=== PATIENT | male | born 1955 | race Caucasian/White ===

== ENCOUNTER 2016-12-31 21:26 | Emergency (ER) | payer BC ==
[2016-12-31 21:33] VITALS: BMI 27.7
--- NOTE | 2016-12-31 21:38 | ED PDOC ---
Arrival/HPI - General Time Seen by Provider: 12/31/16 21:33 Historian: Patient - Critical Care Critical Care Minutes: 45 minutes - History of Present Illness Narrative History of Present Illness (Text): 12/31/16 21:33 Melania Castillo is a 61 year old male, whose past medical history includes hypertension, gout, and scoliosis, who presents to the emergency department complaining of stroke symptoms that began about 30 minutes prior to arrival as per family. No prior history of CVA and anticoagulants. he presents with acute left sided hemiparesis starting at 9:00pm. a stroke alert was called upon arrival. 01/01/17 05:08 Time/Duration: 1/2 hour Symptom Onset: Gradual Activities at Onset: Light Context: Home Past Medical History - Provider Review Nursing Documentation Reviewed: Yes Family/Social History - Physician Review Nursing Documentation Reviewed: Yes Family/Social History: No Known Family HX Hx Alcohol Use: No Allergies/Home Meds Allergies/Adverse Reactions: Allergies shrimp Allergy (Verified 12/31/16 21:30) RASH Home Medications: Home Meds Medication Instructions Recorded Confirmed Atenolol [Tenormin] 50 mg PO DAILY 12/31/16 12/31/16 Lisinopril [Zestril] 20 mg PO DAILY 12/31/16 12/31/16 Naproxen 500 mg PO BID 12/31/16 12/31/16 Valsartan [Diovan] 80 mg PO DAILY 12/31/16 12/31/16 Review of Systems - Physician Review All systems were reviewed & negative as marked: Yes - Review of Systems Systems not reviewed;Unavailable: Acuity of Condition Physical Exam Vital Signs Pulse Resp BP Pulse Ox 12/31/16 22:55 108 H 164/113 H 98 12/31/16 22:50 106 H 166/107 H 97 12/31/16 22:35 101 H 201/123 H 100 12/31/16 22:25 119 H 18 218/146 H 97 12/31/16 22:07 87 174/108 H 12/31/16 21:50 16 174/108 H 100 - Systems Exam Upper Extremity: No: Normal Inspection, Normal ROM (Motor: 4 - LUE) Lower Extremity: No: Normal Inspection, Normal ROM (Motor: 3 - LLE) Neurological: No: GCS=15, CN II-XII Intact, Speech Normal Medical Decision Making ED Course and Treatment: 12/31/16 21:37 Impression: 61 year old male complaining of stroke symptoms that began about 30 minutes prior to arrival. Differential Diagnosis included but are not limited to: CVA vs. TIA Plan: -- Chest X-ray -- Angiography Head CT -- Head CT w/o contrast -- Type and Screen -- Labs -- Reassess and disposition Progress Notes: 12/31/2016 21:[address] Aldridge in detail, who is aware and agrees with patient plan. 12/31/16 22:[address] Ngo, who states that there is nothing to do from a neurosurgical standpoint. Call neurologist. Case discussed with Dr. Aldridge, BP control 120-130 systolic. Head of bed 30 degrees. Family would like to transfer to [facility] for more aggressive surgical care. 12/31/16 22:10 CT Head Without Intravenous Contrast: Creator : JONATHAN JAMES FINDINGS: Brain: Acute intracranial hemorrhage is detected within the right thalamus, extending into the central part of the lateral ventricles. Sherly-hemorrhagic edema is noted. The focus of edema measures 21.7 x 23.1 mm (anterior to posterior by medial to lateral dimension). No significant white matter disease. Ventricles: No significant ventriculomegaly. Bones: No acute displaced fracture. Sinuses: Unremarkable as visualized. No acute sinusitis. Mastoid air cells: Unremarkable as visualized. No mastoid effusion. IMPRESSION: Acute intracranial hemorrhage within the right thalamus, with sherly-hemorrhagic edema, as detailed above. pt was acceptded by dr. Lyn of Neurosurgery at [facility] as per family request. 12/31/16 22:55 On repeat neuro exam, patient is more obtunded. GCS is 4 with right pupil 4 and left pupil 3. Patient was intubated due to decompensation. Patient was also RSI intubated. Given Mannitol 20 g, Lidocaine 100 for RSI intubation, Etomidate 20 mg, Succinylcholine 20 mg, Keppra for seizures, and nicardipine for BP control. Patient's head of bed elevated to 30 degrees and patient sedated with Propofol. despite mannitol, hyperventilation, patient is showing signs of decerebrate posture. multiple attempts were made to titrate nicardipine and propofol to control BP however this was very difficult to control 12/31/16 23:06 Patient will be transferred to [facility] by ALS as per family's request. Intubation placement confirmed with chest x-ray consultation. 01/01/17 04:59 01/01/17 05:10 - Critical Care Critical Care Minutes: 60 minutes - Lab Interpretations Lab Results: 12/31/16 21:50 12/31/16 21:50 Lab Results 12/31/16 21:50: Blood Type O POSITIVE, Antibody Screen Negative, BBK History Checked No verified bt 12/31/16 21:50: Sodium 143, Potassium 4.0, Chloride 102, Carbon Dioxide 30, Anion Gap 15, BUN 24 H, Creatinine 1.3, Est GFR ( Amer) > 60, Est GFR ( Non-Af Amer) 56, Random Glucose 145 H, Calcium 9.1, Total Bilirubin 0.5, AST 29 , ALT 37, Alkaline Phosphatase 62, Troponin I < 0.01, Total Protein 7.0, Albumin 4.1, Globulin 2.8, Albumin/Globulin Ratio 1.5, Triglycerides 420 H, Cholesterol 157, LDL Cholesterol Direct 75, HDL Cholesterol 40 12/31/16 21:50: PT 12.0 H, INR 1.11 H, APTT 29.1 12/31/16 21:50: WBC 7.7, RBC 5.01, Hgb 15.7, Hct 45.6, MCV 91.0, MCH 31.3, MCHC 34.4, RDW 12.6, Plt Count 223, MPV 9.8, Gran % 55.4, Lymph % (Auto) 35.1 H, [place] % (Auto) 7.2 H, Eos % (Auto) 1.9, Baso % (Auto) 0.4, Gran # 4.28, Lymph # 2.7, [place] # 0.6, Eos # 0.2, Baso # 0.03 I have reviewed the lab results: Yes - RAD Interpretation Radiology Orders: 12/31/16 21:39 HEAD W/O (CODE STROKE) [CT] Stat CHEST PORTABLE [RAD] Stat 12/31/16 22:55 X-RAY [CHEST PORTABLE] [RAD] Stat - EKG Interpretation EKG Interpretation (Text): 01/01/17 07:20 3-year-old normal sinus rhythm with inferior Q wave no ST depression or elevation Interpreted by ED Physician: Yes Type: 12 lead EKG - Medication Orders Current Medication Orders: Discontinued Medications Nicardipine HCl (Cardene Iv Premix) 20 mg in 200 mls @ 50 mls/hr IV .Q4H PRN; Protocol; 5 MG/HR PRN Reason: TITRATE PER MD ORDER Last Admin: 12/31/16 22:07 Dose: 50 mls/hr eMAR Start Stop Document 12/31/16 22:07 EKEOO (Rec: 12/31/16 22:07 [email or web address] [id number]) Intravenous Solution Start Date 12/31/16 Start Time 22:07 [facility] Pulse and Blood Pressure Document 12/31/16 22:07 EKEOO (Rec: 12/31/16 22:07 [email or web address] [id number]) Pulse Pulse Rate (60-90 beats/min) 87 Blood Pressure Blood Pressure (100/60-150/90 mm Hg) 174/108 Levetiracetam 1,000 mg/ Sodium (Chloride) 110 mls @ 440 mls/hr IV ONCE ONE Stop: 12/31/16 22:39 Last Admin: 12/31/16 22:30 Dose: 440 mls/hr eMAR Start Stop Document 12/31/16 22:30 EKEOO (Rec: 01/01/17 04:56 [email or web address] [id number]) Intravenous Solution Start Date 12/31/16 Start Time 22:30 Mannitol (Mannitol) 20 gm IV ONCE ONE Stop: 12/31/16 22:28 Last Admin: 12/31/16 22:30 Dose: 20 gm eMAR Start Stop Document 12/31/16 22:30 EKEOO (Rec: 01/01/17 04:54 EKEOO [id number]) Intravenous Solution Start Date 12/31/16 Start Time 22:30 - Procedure PROCEDURE NOTE (Text): PROCEDURE: INTUBATION Performed by the emergency provider Time: Consent: Discussion of the risks, benefits, and alternatives to the procedure, along with informed consent was precluded by the urgency of the procedure and the patient condition. Timeout: A timeout to verify the correct patient, procedure, and site was performed. Indication: Pre-oxygenation: [id number] Medications: . See MAR for details. ETT Size: Confirmation: Cords directly visualized as tube passed, good bilateral breath sounds, positive CO2 detector color change, tube fogging, adequate chest rise, improving pulse oximetry reading, improved skin color, and absence of gastric sounds,. ETT Secured: The cuff was inflated and the tube was secured appropriately at a distance of cm at the lip. Post-Procedure: There were no immediate complications. CXR Confirmation: {Yes / No} NIHSS Scale ([place]) Time Performed: 09:30 - How Severe is the Stoke Baseline Level of Consciousness: 0=Alert LOC to Questions: 0=Both comments correct LOC to commands: 0=Obeys both correctly Best Gaze: 2=Forced deviation Visual: 2=Complete hemianopia Facial: 3=Complete unilateral paralysis Motor Arm - Left: 3=No effort against gravity (falls immediately) Motor Arm - Right: 0=No drift Motor Leg - Left: 3=No effort against gravity (falls immediately) Motor Leg - Right: 0=No drift Limb Ataxia: 0=Absent Sensory: 0=Normal Best Language: 0=No aphasia Dysarthia: 1=Mild to moderate slurring Extinction & Inattention (Neglect): 0=Normal, no object Score: 14 Risk Level: Mod Stroke Risk rTPA Inclusion/Exclusion - Refusal of Treatment Patient Refused Treatment: Yes - Inclusion Criteria for Altepase Patient is 18 years or Older: Yes - Scribe Statement The provider has reviewed the documentation as recorded by the Scribe Bia Butt Provider Scribe Attestation: All medical record entries made by the Scribe were at my direction and personally dictated by me. I have reviewed the chart and agree that the record accurately reflects my personal performance of the history, physical exam, medical decision making, and the department course for this patient. I have also personally directed, reviewed, and agree with the discharge instructions and disposition. Disposition/Present on Arrival - Present on Arrival Any Indicators Present on Arrival: No History of DVT/PE: No History of Uncontrolled Diabetes: No Urinary Catheter: No History of Decub. Ulcer: No - Disposition Have Diagnosis and Disposition been Completed?: Yes Diagnosis: Intracranial hemorrhage Disposition: Transfer Overlook Disposition Time: 07:10 Patient Plan: Admission Condition: CRITICAL Referrals: Chalo Gale MD [Primary Care Provider] - Follow up with primary Forms: [employer] (Ecuadorean)
--- NOTE | 2016-12-31 21:58 | CT ---
EXAM: CT Head Without Intravenous Contrast CLINICAL HISTORY: 61 years old, male; Signs and symptoms; Other: Weakness; Additional info: Code stroke TECHNIQUE: Axial computed tomography images of the head/brain without intravenous contrast. All CT scans at this facility use one or more dose reduction techniques, viz.: automated exposure control; ma/kV adjustment per patient size (including targeted exams where dose is matched to indication; i.e. head); or iterative reconstruction technique. COMPARISON: No relevant prior studies available. FINDINGS: Brain: Acute intracranial hemorrhage is detected within the right thalamus, extending into the central part of the lateral ventricles. Mauricio-hemorrhagic edema is noted. The focus of edema measures 21.7 x 23.1 mm (anterior to posterior by medial to lateral dimension). No significant white matter disease. Ventricles: No significant ventriculomegaly. Bones: No acute displaced fracture. Sinuses: Unremarkable as visualized. No acute sinusitis. Mastoid air cells: Unremarkable as visualized. No mastoid effusion. IMPRESSION: Acute intracranial hemorrhage within the right thalamus, with mauricio-hemorrhagic edema, as detailed above.
[2016-12-31] MEDS ORDERED: Nicardipine 20 MG/200 ML 20 MG/200 ML BAG IV PRN (21:59)
[2016-12-31 22:06] LABS: BASO # 0.03 K/mm3 (0.0-2.0); BASO % 0.4 % (0.0-3.0); EOS # 0.2 (0.0-0.7); EOS % 1.9 % (1.5-5.0); GRAN # 4.28 (1.4-6.5); GRAN % 55.4 % (50.0-68.0); HEMATOCRIT 45.6 % (42.0-52.0); LYMPH # 2.7 (1.2-3.4); LYMPH % 35.1 % (22.0-35.0); MEAN CORPUSCULAR HEMOGLOBIN 31.3 pg (25.0-35.0); MEAN CORPUSCULAR HGB CONC 34.4 g/dl (31.0-37.0); MEAN PLATELET VOLUME 9.8 fl (7.0-11.0); MONO # 0.6 (0.1-0.6); MONO % 7.2 % (1.0-6.0); RED CELL DISTRIBUTION WIDTH 12.6 % (11.5-14.5); WHITE BLOOD COUNT 7.7 10^3/ul (4.5-11.0)
[2016-12-31 22:15] LABS: ALB/GLOB RATIO 1.5 (1.1-1.8); ALKALINE PHOSPHATASE 62 U/L (38-126); ALT/SGPT 37 U/L (7-56); AST/SGOT 29 U/L (17-59); BILIRUBIN,TOTAL 0.5 mg/dL (0.2-1.3); BLOOD UREA NITROGEN 24 mg/dL (7-21); CALCIUM 9.1 mg/dL (8.4-10.5); CARBON DIOXIDE 30 mmol/L (21-33); CHLORIDE 102 mmol/L (98-107); CHOLESTEROL 157 mg/dL (130-200); GFR AFRICAN-AMERICAN > 60; GLUCOSE,RANDOM 145 mg/dL (70-110); SODIUM 143 mmol/L (132-148)
[2016-12-31 22:19] LABS: INR 1.11 (0.93-1.08); PARTIAL THROMBOPLASTIN TIME 29.1 Seconds (23.7-30.8)
[2016-12-31] MEDS ORDERED: levETIRAcetam 1,000 MG in Sodium Chloride 0.9% 100 ML IV ONE (22:25)
[2016-12-31] MEDS ORDERED: Mannitol 12.5 gm/50 ml Inj IV ONE ×2 (22:25→22:27)
[2016-12-31 22:29] LABS: TROPONIN I < 0.01 ng/mL
[2016-12-31] MEDS ORDERED: Succinylcholine 200 mg/10 ml Inj IV ONE (22:33)
[2016-12-31] MEDS ORDERED: Etomidate 20 mg/10ml Inj IV ONE (22:33)
[2016-12-31] MEDS ORDERED: Propofol 10 mg/ml 1,000 MG/100 ML VIAL ONE (22:33)
[2017-01-01 04:37] VITALS: RESP 18
[2017-01-01 04:42] VITALS: BP 164/113; PULSE 108; O2SAT 98
--- NOTE | 2017-01-01 09:11 | RAD ---
HISTORY: cva COMPARISON: No prior. FINDINGS: LUNGS: Bibasilar infiltrates PLEURA: No significant pleural effusion identified, no pneumothorax apparent. CARDIOVASCULAR: Moderate cardiomegaly OSSEOUS STRUCTURES: No significant abnormalities. VISUALIZED UPPER ABDOMEN: Normal. OTHER FINDINGS: None. IMPRESSION: Moderate cardiomegaly an bibasilar infiltrates
--- NOTE | 2017-01-01 09:14 | RAD ---
HISTORY: intubation COMPARISON: Earlier same day FINDINGS: LUNGS: Bibasilar infiltrates. The endotracheal and nasogastric tube are in satisfactory position PLEURA: No significant pleural effusion identified, no pneumothorax apparent. CARDIOVASCULAR: Moderate cardiomegaly OSSEOUS STRUCTURES: No significant abnormalities. VISUALIZED UPPER ABDOMEN: Normal. OTHER FINDINGS: None. IMPRESSION: Bibasilar infiltrates. The endotracheal and nasogastric tube are in satisfactory position
--- NOTE | 2017-01-01 23:00 | CARD ---
APPROVED REPORT EKG Measurement Heart [id number] <Conclusion> Sinus rhythm with premature supraventricular complexes Possible Left atrial enlargement Nonspecific T wave abnormality Abnormal ECG
== END 2016-12-31 23:50 | disposition short-term general hospital (02) ==
LOC: ED 21:26
DX: I62.9 Nontraumatic intracranial hemorrhage, unspecified (principal); I10 Essential (primary) hypertension
CPT/HCPCS: 70450; 71010; 80053; 80061; 83036; 84484; 85025; 85610; 85730; 86850; 86900; 93005; 99285; J0330; J1953; J2001; J2150; J2704